=== PATIENT | male | born 1995 | race Two or more races ===

== ENCOUNTER 2023-01-20 14:18 | Emergency (ER) | payer MEDICAID, OTHER ==
[~2023-01-20] VITALS: Ht 172.7 cm; Wt 77.0 kg
[2023-01-20 15:18] VITALS: BP 130/60
[2023-01-20] MEDS ORDERED: LIDO2SOL26 MT (15:29)
[2023-01-20] MEDS ORDERED: AZIT500T66 PO (15:29)
[2023-01-20] MEDS ORDERED: cefTRIAXone SOD 1,000 MG VL IM ONE (15:30)
== END 2023-01-20 16:13 | disposition home or self-care (01) ==
LOC: ER 14:18
DX: J03.90 Acute tonsillitis, unspecified (principal)
CPT/HCPCS: 96372; 99283; J0696